=== PATIENT | female | born 1980 | race Hispanic/Latino ===

== ENCOUNTER 2024-07-21 13:57 | Outpatient (CLI) | payer BC ==
[2024-07-21 14:54] LABS: #Basophils 0.03 10x3/uL (0.0-0.2); #Eosinphils 0.35 10x3/uL (0.0-0.5); #Monocytes 0.66 10x3/uL (0.0-1.1); %Basophils 0.3 % (0.0-2.0); %Eosinophils 4.1 % (0.0-6.0); %Lymphocytes 30.3 % (18.0-47.0); %Monocytes 7.7 % (0.0-10.0); %Neutrophils 57.1 % (40.0-75.0); Hematocrit 39.1 % (34.9-44.5); Hemoglobin 13.2 g/dL (12.0-15.5); Mean Corpuscular HGB CONC 33.8 g/dL (32.0-36.0); Mean Corpuscular Volume 88.9 fL (81.6-98.3); Mean Platelet Volume 8.8 fL (7.4-10.4); Platelet Count 211 10x3/uL (150-450); RBC Distribution Width 12.6 % (11.5-14.5); White Blood Cell (WBC) Count 8.6 10x3/uL (3.5-10.5)
[2024-07-21 15:07] LABS: Anion Gap 14 mmol/L (10-20); BUN (Urea Nitrogen) 13 mg/dL (7.0-18.7); Calc. Creatinine Clearance 0 mL/min (70-130); Calcium 9.1 mg/dL (7.8-10.44); Carbon Dioxide 24 mmol/L (22-29); Chloride 107 mmol/L (98-107); Estimated GFR 91; Glucose 120 mg/dL (70-105); Potassium 3.9 mmol/L (3.5-5.1); Sodium 141 mmol/L (136-145)
== END 2024-07-21 13:58 | disposition home or self-care (01) ==
LOC: CSHLAB 13:57
PROVIDERS: ATTEND Specialist
DX: Z01.812 Encounter for preprocedural laboratory examination (principal); K42.9 Umbilical hernia without obstruction or gangrene; Z85.3 Personal history of malignant neoplasm of breast
CPT/HCPCS: 80048; 85025

== ENCOUNTER 2024-07-25 10:18 | Day surgery (SDC) | payer BC ==
[2024-07-21 14:34] VITALS: BMI 28.3
[2024-07-25] MEDS ORDERED: Bupivacaine HCl 0.5%/Epinephrine 1:200,000/PF 30 ml Vial ONE (10:44)
[2024-07-25] MEDS ORDERED: CEFAZOLIN 2 GM VIAL ONE (10:44)
[2024-07-25] MEDS ORDERED: Acetaminophen 500 MG TAB ONE (10:59)
[2024-07-25] MEDS ORDERED: Ketorolac Tromethamine 30 MG (1 mL) VIAL ONE (10:59)
[2024-07-25] MEDS ORDERED: Bupivacaine/Epinephrine 0.25% 30 ML VIAL ONE (11:58)
[2024-07-25] MEDS ORDERED: Midazolam HCl 2 mg/2 ml Vial ONE (15:12)
[2024-07-25] MEDS ORDERED: Fentanyl 250 MCG/5 ML VIAL ONE (15:12)
[2024-07-25] MEDS ORDERED: PROPOFOL 20 ML ONE (15:12)
[2024-07-25] MEDS ORDERED: Rocuronium Bromide 10 MG/ML (10ML VIAL) ONE (15:12)
[2024-07-25] MEDS ORDERED: Ondansetron PF 4 MG/2 ML Vial ONE ×2 (15:12→18:50)
[2024-07-25] MEDS ORDERED: Dexamethasone 4 mg/ml Vial ONE (15:12)
[2024-07-25] MEDS ORDERED: fentaNYL 50 mcg/mL 1 mL Vial ONE (17:42)
[2024-07-25] MEDS ORDERED: HYDROcodone/Acetaminophen 5/325 mg Tablet ONE (18:15)
== END 2024-07-25 19:15 | disposition home or self-care (01) ==
LOC: CSHSDC 10:18
PROVIDERS: ATTEND Specialist
PROC: 0WUF4JZ Supplement Abdominal Wall with Synthetic Substitute, Percutaneous Endoscopic Approach (ICD-10-PCS; principal; 2024-07-25)
PROC: 0JPV3WZ Removal of Totally Implantable Vascular Access Device from Upper Extremity Subcutaneous Tissue and Fascia, Percutaneous Approach (ICD-10-PCS; 2024-07-25)
DX: K42.9 Umbilical hernia without obstruction or gangrene (principal); Z85.3 Personal history of malignant neoplasm of breast; Z79.899 Other long term (current) drug therapy; Z98.890 Other specified postprocedural states
CPT/HCPCS: A6258; C1781; J1100; J1885; J2250; J2405; J2704; J3010

== ENCOUNTER 2025-05-27 10:32 | Outpatient (CLI) | payer BC | END 2025-05-27 10:33 | disposition home or self-care (01) | LOC: CSHMAMMO 10:32 | PROVIDERS: ATTEND Specialist | DX: Z08 Encounter for follow-up examination after completed treatment for malignant neoplasm (principal); Z85.3 Personal history of malignant neoplasm of breast | CPT/HCPCS: 77066; G0279 ==